=== PATIENT | female | born 1960 | race Caucasian/White ===

== ENCOUNTER 2019-12-06 15:49 | Emergency (ER) | payer OTHER, SELFPAY ==
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
[2019-12-06 16:05] VITALS: BP 150/86; PULSE 99; RESP 20; TEMP 36.7; O2SAT 99
[2019-12-06] MEDS: KETOROLAC 30 MG/ML VIAL (*BKC) IV PUSH (16:19)
[2019-12-06 17:38] VITALS: RESP 16
== END 2019-12-06 17:40 | disposition home or self-care (01) ==
PROVIDERS: Emergency Provider Emergency Medicine
DX: S30.1XXA Contusion of abdominal wall, initial encounter (principal); S62.501A Fracture of unspecified phalanx of right thumb, initial encounter for closed fracture; T14.8XXA Other injury of unspecified body region, initial encounter; V89.2XXA Person injured in unspecified motor-vehicle accident, traffic, initial encounter
CPT/HCPCS: 29130; 71250; 73120; 74176; 96374; 99283; 99284; J1885; L3908